=== PATIENT | female | born 1995 | race African-American/Black ===

== ENCOUNTER 2016-11-30 18:51 | Emergency (ER) | payer BC ==
--- NOTE | 2016-11-30 19:20 | EDM.PDOC ---
ED HPI GENERAL MEDICAL PROBLEM - General Chief Complaint: Upper Extremity Injury/Pain Stated Complaint: PAIN RIGHT INDEX FINGER Time Seen by Provider: 11/30/16 19:16 Source of Information: Reports: Patient History Limitations: Reports: No Limitations - History of Present Illness INITIAL COMMENTS - FREE TEXT/NARRATIVE: HISTORY AND PHYSICAL: []21-year-old female presents with right index finger pain at the PIP joint History of Present Illness: []awakened over a week ago and had pain in her finger . "I guess I'm a wild sleeper "she says. No explained injury Review of Systems: As per history of present illness and below otherwise all systems reviewed and negative. Past medical history: As per history of present illness and as reviewed below otherwise noncontributory. Surgical history: As per history of present illness and as reviewed below otherwise noncontributory. Social history: No reported history of drug or alcohol abuse. Family history: As per history of present illness and as reviewed below otherwise noncontributory. Physical exam: Alert and oriented female. Nontoxic. HEENT: Atraumatic, normocehpalic, pupils reactive, negative for conjunctival pallor or scleral icterus, mucous membranes moist, throat clear, neck supple, nontender, trachea midline. Lungs: Clear to auscultation, breath sounds equal bilaterally, chest non tender. Heart: S1S2, regular, negative for clicks, rubs, or JVD. Abdomen: Soft, nondistended, nontender. Negative for masses or hepatossplenmegaly. Negative for costovertebral tenderness. Pelvis: Stable nontender. Genitourinary: Deferred. Rectal: Deferred Extremities: Atraumatic, negative for cords or calf pain. Mild edema noted to the PIP joint of her right index finger. Range of motion is present Neurovascular unremarkable. Neuro: Awake, alert, oriented. Cranial nerves II through XII unremarkable. Cerebellum unremarkable. Motor and sensory unremarkable throughout. Exam nonfocal. Diagnostics: []X-ray right index finger with no fracture or dislocation Therapeutics: splint[] Impression: [pain right index finger] Plan: [] splint with aluminum finger splint ibuprofen for discomfort follow up with your PCP next week Definitive disposition and diagnosis as appropriate pending reevaluation and review of above. Onset: Sudden Duration: Week(s): (Over a week ago), Getting Worse right index Pain Score (Numeric/FACES): 4 - Related Data Allergies Allergy/AdvReac Type Severity Reaction Status Date / Time No Known Allergies Allergy Verified 11/30/16 19:07 Home Meds: Home Meds . [No Known Home Meds] 11/30/16 [History] Review of Systems - Review of Systems Review Of Systems: ROS reveals no pertinent complaints other than HPI. ED EXAM, GENERAL - Physical Exam Exam: See Below (See dictation) Course - Vital Signs Last Recorded V/S: Last Vital Signs Temp 36.3 C 11/30/16 19:08 Pulse 88 11/30/16 19:08 Resp 18 11/30/16 19:08 BP 123/66 11/30/16 19:08 Pulse Ox 98 11/30/16 19:08 - Orders/Labs/Meds Orders: Active Orders 24 hr Category Date Time Status Fingers Second Digit Rt F6 [CR] Stat Exams 11/30/16 19:18 Taken Labs: Laboratory Tests 11/30/16 Range/Units 19:28 Urine HCG, Qual NEGATIVE (NEGATIVE) Departure - Departure Time of Disposition: 20:46 Disposition: Home, Self-Care 01 Condition: Good Clinical Impression: Strain of right index finger - Discharge Information Referrals: PCP,None [Primary Care Provider] - Forms: ED Department Discharge Additional Instructions: The following information is given to patients seen in the emergency department who are being discharged to home. This information is to outline your options for follow-up care. We provide all patients seen in our emergency department with a follow-up referral. The need for follow-up, as well as the timing and circumstances, are variable depending upon the specifics of your emergency department visit. If you don't have a primary care physician on staff, we will provide you with a referral. We always advise you to contact your personal physician following an emergency department visit to inform them of the circumstance of the visit and for follow-up with them and/or the need for any referrals to a consulting specialist. The emergency department will also refer you to a specialist when appropriate. This referral assures that you have the opportunity for followup care with a specialist. All of these measure are taken in an effort to provide you with optimal care, which includes your followup. Under all circumstances we always encourage you to contact your private physician who remains a resource for coordinating your care. When calling for followup care, please make the office aware that this follow-up is from your recent emergency room visit. If for any reason you are refused follow-up, please contact the [facility] emergency department at and asked to speak to the emergency department charge nurse. No fracture or dislocation has been noted on your x-ray today A splint with aluminum and foam has been applied to help with your discomfort Follow-up with your primary care provider next week You may take ibuprofen 3 tablets 3 times daily as needed for your discomfort - My Orders Last 24 Hours: My Active Orders 11/30/16 19:18 Fingers Second Digit Rt F6 [CR] Stat - Assessment/Plan Last 24 Hours: My Active Orders 11/30/16 19:18 Fingers Second Digit Rt F6 [CR] Stat
[2016-11-30 21:40] VITALS: BP 131/78
--- NOTE | 2016-12-01 10:15 | CR ---
EXAM DATE: 11/30/16 PATIENT'S AGE: 21 Patient: KEVIN HAM Facility: [place], [place] Site . Site : 1995 Study: XRay Extremity Right finger [id number]/28/2017 7:47:41 PM Ordering Physician: Doctor Michelle Final Report: INDICATION: EDEMA, PAIN TO 2ND DIGIT ON RIGHT HAND TECHNIQUE: Three views of the right index finger COMPARISON: None FINDINGS: Bones: No fractures or bone lesions. Joint spaces: Unremarkable. Soft tissues: Unremarkable. IMPRESSION: No acute bony abnormality. Dictated by Lucas Dhillon MD @ 11/30/2016 8:35:33 PM Dictated by: Lucas Dhillon MD @ 11/30/2016 20:36:20 (Electronic Signature) Report Signed by Proxy. ST. CLARE'S HOSPITALCaroline
== END 2016-11-30 21:21 | disposition home or self-care (01) ==
LOC: MW.ED 18:51
DX: S69.81XA Other specified injuries of right wrist, hand and finger(s), initial encounter (principal); X58.XXXA Exposure to other specified factors, initial encounter
CPT/HCPCS: 73140-26-F6; 73140-F6; 81025; 99282; 99283

== ENCOUNTER 2017-07-17 01:05 | Emergency (ER) | payer BC ==
[2017-07-17 01:18] VITALS: BP 135/81
--- NOTE | 2017-07-17 01:22 | EDM.PDOC ---
ED HPI GENERAL MEDICAL PROBLEM - General Chief Complaint: ENT Problem Stated Complaint: TOOTH PAIN Time Seen by Provider: 07/17/17 01:22 - History of Present Illness INITIAL COMMENTS - FREE TEXT/NARRATIVE: HISTORY AND PHYSICAL: History of present illness: Age 22-year-old female presents concern of dental pain is in the region of her right upper and lower molar fever chills nausea vomiting or other complaintsReview of systems: As per history of present illness and below otherwise all systems reviewed and negative. Past medical history: As per history of present illness and as reviewed below otherwise noncontributory. Surgical history: As per history of present illness and as reviewed below otherwise noncontributory. Social history: No reported history of drug or alcohol abuse. Family history: As per history of present illness and as reviewed below otherwise noncontributory. Physical exam: HEENT: Atraumatic, normocephalic, pupils reactive, negative for conjunctival pallor or scleral icterus, mucous membranes moist, throat clear, neck supple, nontender, trachea midline. Lungs: Clear to auscultation, breath sounds equal bilaterally, chest nontender. Heart: S1S2, regular, negative for clicks, rubs, or JVD. Abdomen: Soft, nondistended, nontender. Negative for masses or hepatosplenomegaly. Negative for costovertebral tenderness. Pelvis: Stable nontender. Genitourinary: Deferred. Rectal: Deferred. Extremities: Atraumatic, negative for cords or calf pain. Neurovascular unremarkable. Neuro: Awake, alert, oriented. Cranial nerves II through XII unremarkable. Cerebellum unremarkable. Motor and sensory unremarkable throughout. Exam nonfocal. Diagnostics: None Therapeutics: None Impression: Dentalgia Definitive disposition and diagnosis as appropriate pending reevaluation and review of above. dental pain Pain Score (Numeric/FACES): 9 - Related Data Allergies Allergy/AdvReac Type Severity Reaction Status Date / Time No Known Allergies Allergy Verified 07/17/17 01:16 Home Meds: Home Meds . [No Known Home Meds] 11/30/16 [History] Past Medical History HEENT History: Reports: None Cardiovascular History: Reports: None Respiratory History: Reports: None Gastrointestinal History: Reports: None Genitourinary History: Reports: None [employer] History: Reports: None Musculoskeletal History: Reports: None Neurological History: Reports: None Psychiatric History: Reports: None Endocrine/Metabolic History: Reports: None Hematologic History: Reports: None Oncologic (Cancer) History: Reports: None Dermatologic History: Reports: None - Infectious Disease History Infectious Disease History: Reports: None Social & Family History - Family History Family Medical History: Noncontributory - Tobacco Use Smoking Status *Q: Never Smoker - Caffeine Use Caffeine Use: Reports: Energy Drinks - Recreational Drug Use Recreational Drug Use: No ED ROS GENERAL - Review of Systems Review Of Systems: ROS reveals no pertinent complaints other than HPI. ED EXAM, GENERAL - Physical Exam Exam: See Below (See dictation) Course - Vital Signs Last Recorded V/S: Last Vital Signs Temp 36.7 C 07/17/17 01:15 Pulse 60 07/17/17 01:15 Resp 18 07/17/17 01:15 BP 135/81 07/17/17 01:15 Pulse Ox 98 07/17/17 01:15 Departure - Departure Time of Disposition: 01:21 Disposition: Home, Self-Care 01 Condition: Good Clinical Impression: Dentalgia - Discharge Information Referrals: PCP,None [Primary Care Provider] - Additional Instructions: The following information is given to patients seen in the emergency department who are being discharged to home. This information is to outline your options for follow-up care. We provide all patients seen in our emergency department with a follow-up referral. The need for follow-up, as well as the timing and circumstances, are variable depending upon the specifics of your emergency department visit. If you don't have a primary care physician on staff, we will provide you with a referral. We always advise you to contact your personal physician following an emergency department visit to inform them of the circumstance of the visit and for follow-up with them and/or the need for any referrals to a consulting specialist. The emergency department will also refer you to a specialist when appropriate. This referral assures that you have the opportunity for followup care with a specialist. All of these measure are taken in an effort to provide you with optimal care, which includes your followup. Under all circumstances we always encourage you to contact your private physician who remains a resource for coordinating your care. When calling for followup care, please make the office aware that this follow-up is from your recent emergency room visit. If for any reason you are refused follow-up, please contact the [facility] emergency department at and asked to speak to the emergency department charge nurse. Monica Castillo as prescribed Motrin/Tylenol as directed follow-up dentist return as needed as discussed[]
== END 2017-07-17 01:30 | disposition home or self-care (01) ==
LOC: MW.ED 01:05
DX: K08.89 Other specified disorders of teeth and supporting structures (principal)
CPT/HCPCS: 99282

== ENCOUNTER 2017-08-01 21:15 | Emergency (ER) | payer BC ==
--- NOTE | 2017-08-01 23:02 | EDM.PDOC ---
ED HPI GENERAL MEDICAL PROBLEM - General Chief Complaint: ENT Problem Stated Complaint: POSSIBLE PINK EYE Time Seen by Provider: 08/01/17 22:58 - History of Present Illness INITIAL COMMENTS - FREE TEXT/NARRATIVE: HISTORY AND PHYSICAL: History of present illness: Patient 22-year-old female presents concern of pinkeye she has irritation injected right conjunctiva 1 day there's been no fever chills nausea vomiting no other complaints no trauma. Review of systems: As per history of present illness and below otherwise all systems reviewed and negative. Past medical history: As per history of present illness and as reviewed below otherwise noncontributory. Surgical history: As per history of present illness and as reviewed below otherwise noncontributory. Social history: No reported history of drug or alcohol abuse. Family history: As per history of present illness and as reviewed below otherwise noncontributory. Physical exam: HEENT: Atraumatic, normocephalic, pupils reactive, injected conjunctiva no evidence of foreign body no evidence of corneal abrasion anterior chamber clear no discharge mucous membranes moist, throat clear, neck supple, nontender, trachea midline. Lungs: Clear to auscultation, breath sounds equal bilaterally, chest nontender. Heart: S1S2, regular, negative for clicks, rubs, or JVD. Abdomen: Soft, nondistended, nontender. Negative for masses or hepatosplenomegaly. Negative for costovertebral tenderness. Pelvis: Stable nontender. Genitourinary: Deferred. Rectal: Deferred. Extremities: Atraumatic, negative for cords or calf pain. Neurovascular unremarkable. Neuro: Awake, alert, oriented. Cranial nerves II through XII unremarkable. Cerebellum unremarkable. Motor and sensory unremarkable throughout. Exam nonfocal. Diagnostics: None Therapeutics: None Impression: #1 conjunctivitis Definitive disposition and diagnosis as appropriate pending reevaluation and review of above. throat Pain Score (Numeric/FACES): 3 - Related Data Allergies Allergy/AdvReac Type Severity Reaction Status Date / Time No Known Allergies Allergy Verified 08/01/17 22:52 Home Meds: Home Meds . [No Known Home Meds] 11/30/16 [History] Past Medical History - Past Health History Medical/Surgical History: Denies Medical/Surgical History HEENT History: Reports: None Cardiovascular History: Reports: None Respiratory History: Reports: None Gastrointestinal History: Reports: None Genitourinary History: Reports: None [employer] History: Reports: None Musculoskeletal History: Reports: None Neurological History: Reports: None Psychiatric History: Reports: None Endocrine/Metabolic History: Reports: None Hematologic History: Reports: None Oncologic (Cancer) History: Reports: None Dermatologic History: Reports: None - Infectious Disease History Infectious Disease History: Reports: Chicken Pox Social & Family History - Family History Family Medical History: Noncontributory - Tobacco Use Smoking Status *Q: Never Smoker - Caffeine Use Caffeine Use: Reports: Coffee, Energy Drinks, Soda, Tea - Recreational Drug Use Recreational Drug Use: No ED ROS GENERAL - Review of Systems Review Of Systems: ROS reveals no pertinent complaints other than HPI. ED EXAM, GENERAL - Physical Exam Exam: See Below (See dictation) Course - Vital Signs Last Recorded V/S: Last Vital Signs Temp 37.0 C 08/01/17 22:07 Pulse 78 08/01/17 22:07 Resp 16 08/01/17 22:07 BP 134/76 08/01/17 22:07 Pulse Ox 97 08/01/17 22:07 Departure - Departure Time of Disposition: 23:01 Disposition: Home, Self-Care 01 Condition: Good Clinical Impression: Conjunctivitis - Discharge Information Referrals: PCP,None [Primary Care Provider] - Additional Instructions: The following information is given to patients seen in the emergency department who are being discharged to home. This information is to outline your options for follow-up care. We provide all patients seen in our emergency department with a follow-up referral. The need for follow-up, as well as the timing and circumstances, are variable depending upon the specifics of your emergency department visit. If you don't have a primary care physician on staff, we will provide you with a referral. We always advise you to contact your personal physician following an emergency department visit to inform them of the circumstance of the visit and for follow-up with them and/or the need for any referrals to a consulting specialist. The emergency department will also refer you to a specialist when appropriate. This referral assures that you have the opportunity for followup care with a specialist. All of these measure are taken in an effort to provide you with optimal care, which includes your followup. Under all circumstances we always encourage you to contact your private physician who remains a resource for coordinating your care. When calling for followup care, please make the office aware that this follow-up is from your recent emergency room visit. If for any reason you are refused follow-up, please contact the [facility] emergency department at and asked to speak to the emergency department charge nurse. Tobramycin as prescribed follow-up primary medical doctor and/or ophthalmology as needed as discussed and return as needed as discussed
[2017-08-02 00:28] VITALS: BP 98/59
== END 2017-08-01 23:31 | disposition home or self-care (01) ==
LOC: MW.ED 21:15
DX: H10.9 Unspecified conjunctivitis (principal)
CPT/HCPCS: 99282

== ENCOUNTER 2019-11-22 11:43 | Emergency (ER) | payer SELFPAY ==
[2019-11-22] MEDS ORDERED: Bupivacaine 0.5% 10 ML SDV INJECT ONE (12:13)
[2019-11-22] MEDS ORDERED: Acetaminophen 500 MG Tab PO ONE (12:14)
[2019-11-22] MEDS ORDERED: Ibuprofen 400 MG Tab PO ONE (12:14)
--- NOTE | 2019-11-22 12:16 | EDM.PDOC ---
ED HPI GENERAL MEDICAL PROBLEM - General Chief Complaint: General Stated Complaint: TOOTH PAIN Time Seen by Provider: 11/22/19 11:57 Source of Information: Reports: Patient History Limitations: Reports: No Limitations - History of Present Illness INITIAL COMMENTS - FREE TEXT/NARRATIVE: 24-year-old female with no past medical history presenting with dental pain. Patient reports a 3-day history of pain to 1 of her left upper teeth and 1 day history of left-sided facial swelling. Has not seen a dentist in greater than 1 year. Reports that she cracked 1 of her teeth which is at the same area as her pain. Denies fever, chills, difficulty swallowing or speaking, neck stiffness, vomiting, voice change. Intermittently taking acetaminophen and ibuprofen at home without much relief. Denies any other complaints. Past medical history: Reviewed, no additional pertinent history. Surgical history: Reviewed in system, no additional pertinent history. Social history: Reviewed in system, no additional pertinent history. Family history: Reviewed in system, no additional pertinent history. PHYSICAL EXAM Vital signs reviewed. Nursing notes reviewed. Constitutional: Awake, alert, non-distressed. Head: Normocephalic, atraumatic. Eyes: EOMI, conjunctiva normal, no discharge, no scleral icterus. Ears, Nose, Throat: External ears and nose normal, moist oral mucosa. Midline uvula. Soft floor the mouth. Mild amount of tenderness and swelling at the base of the #13 tooth consistent with a mild periapical abscess. Normal voice. Neck: Supple, full range of motion. No pain with tracheal tug. Cardiovascular: 2+ radial pulse, capillary refill less than 2 seconds. Pulmonary: normal work of breathing, no accessory muscle use. Speaking in full sentences, handling secretions without difficulty. Abdomen/GI: nondistended Musculoskeletal: No deformities. Integumentary: Appropriate color for ethnicity, warm, dry, no pallor or jaundice, no rash. Neurologic: Alert, answering questions appropriately, normal speech, no facial droop, moving all extremities well. Psychiatric: Appropriate mood and affect, normal thought process. - Related Data Allergies Allergy/AdvReac Type Severity Reaction Status Date / Time No Known Allergies Allergy Verified 11/22/19 11:57 Home Meds: Home Meds Acetaminophen [Acetaminophen Extra Strength] 500 - 1,000 mg PO Q6H PRN #30 tablet 11/22/19 [Rx] Amoxicillin/Potassium Clav [Augmentin 875-125 Tablet] 1 each PO BID 10 Days #20 tablet 11/22/19 [Rx] Ibuprofen 400 mg PO Q6H PRN #30 tablet 11/22/19 [Rx] Past Medical History - Past Health History Medical/Surgical History: Denies Medical/Surgical History HEENT History: Reports: None Cardiovascular History: Reports: None Respiratory History: Reports: None Gastrointestinal History: Reports: None Genitourinary History: Reports: None CARDIAC CATH RN History: Reports: None Musculoskeletal History: Reports: None Neurological History: Reports: None Psychiatric History: Reports: None Endocrine/Metabolic History: Reports: None Hematologic History: Reports: None Oncologic (Cancer) History: Reports: None Dermatologic History: Reports: None - Infectious Disease History Infectious Disease History: Reports: None - Past Surgical History HEENT Surgical History: Reports: None Cardiovascular Surgical History: Reports: None Respiratory Surgical History: Reports: None GI Surgical History: Reports: None Female Surgical History: Reports: None Endocrine Surgical History: Reports: None Neurological Surgical History: Reports: None Musculoskeletal Surgical History: Reports: None Dermatological Surgical History: Reports: None Social & Family History - Family History Family Medical History: Noncontributory - Tobacco Use Smoking Status *Q: Current Every Day Smoker Years of Tobacco use: 4 Packs/Tins Daily: 0.1 - Caffeine Use Caffeine Use: Reports: None - Alcohol Use Alcohol Use History: Yes - Recreational Drug Use Recreational Drug Use: No ED ROS GENERAL - Review of Systems Review Of Systems: See Below ED EXAM, GENERAL - Physical Exam Exam: See Below ED I&D PROCEDURES - I&D Site: #13 tooth/periapical Local Anesthesia - Bupivicaine (Marcaine): 0.5% Plain Local Anesthetic Volume: 2cc Area Incised With: 11 Blade Drainage: Purulent Probed to Break Up Loculations: No Packed With: None Complications: No Progress/Comments: Left MSA block and local infiltration. Course - Vital Signs Text/Narrative:: Patient hemodynamically stable, afebrile, well-appearing, looks nontoxic. Differential diagnosis includes but is not limited to: pulpitis, periapical abscess, deep space neck infection, sinusitis, fractured tooth, etc. Mildly hypertensive on arrival, nontoxic, afebrile, well-appearing. On examination, patient has a periapical abscess at the root of the #13 tooth. Dental balls were placed and the patient was given Tylenol and Motrin. She underwent an MSA nerve block and also had local infiltration with bupivacaine. She then underwent incision and drainage as detailed in procedure documentation. This was well-tolerated. Stable to discharge home with outpatient dentistry clinic follow-up. Prescriptions written for Augmentin, Tylenol, and Motrin. Strict emergency department return precautions were provided, patient indicated understanding. All questions were answered prior to departure. Discharged in good condition. Last Recorded V/S: Last Vital Signs Temp 35.9 C L 11/22/19 11:55 Pulse 82 11/22/19 12:41 Resp 18 11/22/19 12:41 BP 118/70 11/22/19 12:41 Pulse Ox 98 11/22/19 12:41 - Orders/Labs/Meds Meds: Medications Discontinued Medications Generic Name Dose Route Start Last Admin Trade Name Freq PRN Reason Stop Dose Admin Acetaminophen 1,000 mg 11/22/19 12:14 11/22/19 12:40 Tylenol Extra Strength PO 11/22/19 12:15 1,000 mg ONETIME ONE Administration Benzocaine 2 each 11/22/19 12:23 11/22/19 12:40 Hurricaine One 20% MUCMEM 11/22/19 12:24 2 each ONETIME ONE Administration Bupivacaine HCl 10 ml 11/22/19 12:13 11/22/19 12:40 Sensorcaine-Mpf 0.5% INJECT 11/22/19 12:14 10 ml ONETIME ONE Administration Ibuprofen 400 mg 11/22/19 12:14 11/22/19 12:40 Motrin PO 11/22/19 12:15 400 mg ONETIME ONE Administration Lidocaine HCl 15 ml 11/22/19 12:23 11/22/19 12:40 Xylocaine 2% Viscous PO 11/22/19 12:24 15 ml ONETIME ONE Administration Departure - Departure Time of Disposition: 13:06 Disposition: Home, Self-Care 01 Condition: Good Clinical Impression: Periapical abscess - Discharge Information *PRESCRIPTION DRUG MONITORING PROGRAM REVIEWED*: Not Applicable *COPY OF PRESCRIPTION DRUG MONITORING REPORT IN PATIENT LUÍS: Not Applicable Prescriptions: Acetaminophen [Acetaminophen Extra Strength] 500 - 1,000 mg PO Q6H PRN #30 tablet PRN Reason: Pain (Mild 1-3) Amoxicillin/Potassium Clav [Augmentin 875-125 Tablet] 1 each PO BID 10 Days #20 tablet Ibuprofen 400 mg PO Q6H PRN #30 tablet PRN Reason: Pain (Mild 1-3) Referrals: PCP,None [Primary Care Provider] - Forms: ED Department Discharge Additional Instructions: You were seen in the emergency department for dental pain and swelling. You had an abscess at the root of your tooth, we incised and drained. We are going to prescribe some oral antibiotics along with Tylenol and Motrin. You do need to follow-up with a dentist in the next 1 to 2 weeks for reevaluation. Warning signs to come back to the ER include worsening facial swelling, fever, difficulty speaking, swallowing, or breathing, or any other new or concerning symptoms. Please return the emergency department immediately if your symptoms worsen or if you feel worse. Thank you for choosing the [facility] emergency department in [place] for your medical needs today. It was a pleasure caring for you. The following information is given to patients seen in the emergency department who are being discharged. This information is to outline your options for follow-up care. We provide all patients seen in our emergency department with a follow-up referral. The need for follow-up, as well as the timing and circumstances, are variable depending upon the specifics of your emergency department visit. If you don't have a primary care physician on staff, we will provide you with a referral. We always advise you to contact your personal physician following an emergency department visit to inform them of the circumstance of the visit and for follow-up with them and/or the need for any referrals to a consulting specialist. The emergency department will also refer you to a specialist when appropriate. This referral assures that you have the opportunity for follow-up care with a specialist. All of these measure are taken in an effort to provide you with optimal care, which includes your follow-up. Under all circumstances we always encourage you to contact your private physician who remains a resource for coordinating your care. When calling for follow-up care, please make the office aware that this follow-up is from your recent emergency room visit. If for any reason you are refused follow-up, please contact the [facility] Emergency Department at and asked to speak to the emergency department charge nurse. If you do not have a primary care physician that is caring for you, you can contact these clinics below to set up an appointment to establish care: [facility] [address] [place] [id number] [facility] [address] [place] [id number] Sepsis Event Note (ED) - Evaluation Sepsis Screening Result: No Definite Risk - Focused Exam Vital Signs: Vital Signs Temp Pulse Resp BP Pulse Ox 11/22/19 12:41 82 18 118/70 98 11/22/19 11:55 35.9 C L 68 18 148/129 H 98
[2019-11-22] MEDS ORDERED: Benzocaine 20% Topical Spray UD MUCMEM ONE (12:23)
[2019-11-22] MEDS ORDERED: Lidocaine 2% Viscous Solution 15 ML Cup PO ONE (12:23)
[2019-11-22 17:07] VITALS: BP 118/80; PULSE 62
== END 2019-11-22 13:30 | disposition home or self-care (01) ==
LOC: MW.ED 11:43
DX: K04.7 Periapical abscess without sinus (principal); F17.210 Nicotine dependence, cigarettes, uncomplicated
CPT/HCPCS: 41800; 99282; A9270; J3490

== ENCOUNTER 2021-04-16 12:40 | Emergency (ER) | payer BC ==
[2021-04-16 15:07] VITALS: BP 112/82; PULSE 73
== END 2021-04-16 14:49 | disposition home or self-care (01) ==
LOC: MW.ED 12:40
DX: M17.11 Unilateral primary osteoarthritis, right knee (principal)
CPT/HCPCS: 73562-26-RT; 73562-RT; 81025; 99283-25

== ENCOUNTER 2021-12-06 11:42 | Emergency (ER) | payer BC ==
[2021-12-06 11:58] VITALS: BP 146/85; PULSE 72
[2021-12-06 13:22] LABS: POTASSIUM,K 3.6 mmol/L (3.5-5.1)
== END 2021-12-06 14:20 | disposition home or self-care (01) ==
LOC: MW.ED 11:42
DX: O20.0 Threatened abortion (principal); Z79.82 Long term (current) use of aspirin; Z3A.01 Less than 8 weeks gestation of pregnancy
CPT/HCPCS: 36415; 80053; 81001; 84702; 85025; 87086; 99284

== ENCOUNTER 2022-12-02 17:19 | Emergency (ER) | payer BC ==
[2022-12-02] MEDS ORDERED: Ketorolac 30 MG/ML SDV IM ONE (18:32)
[2022-12-02] MEDS ORDERED: Cyclobenzaprine 10 MG Tab PO ONE (18:32)
[2022-12-02] MEDS ORDERED: Lidocaine 4% 1 each Patch TOP PRN (18:33)
[2022-12-02 20:18] VITALS: BP 123/74; PULSE 73
== END 2022-12-02 20:17 | disposition home or self-care (01) ==
LOC: MW.ED 17:19
DX: M54.42 Lumbago with sciatica, left side (principal); Z72.0 Tobacco use
CPT/HCPCS: 72131; 96372; 99283; A9270; J1885

== ENCOUNTER 2023-07-26 08:20 | Emergency (ER) | payer BC ==
[2023-07-26 09:49] LABS: BASOPHILS ABSOLUTE AUTO 0.03 K/uL (0.00-0.20); BASOPHILS PERCENT AUTO 0.4 % (0.0-1.0); EOSINOPHILS ABSOLUTE AUTO 0.13 K/uL (0.00-0.45); EOSINOPHILS PERCENT AUTO 1.9 % (0.0-6.0); HEMATOCRIT 38.6 % (37.0-47.0); HEMOGLOBIN 13.1 g/dL (12.0-16.0); IMMATURE GRAN ABSOLUTE AUTO 0.03 K/uL (0.00-0.05); IMMATURE GRAN PERCENT AUTO 0.4 % (0.0-0.4); LYMPHOCYTES ABSOLUTE AUTO 2.12 K/uL (1.00-4.80); LYMPHOCYTES PERCENT AUTO 31.1 % (24.0-44.0); MEAN CORPUSCULAR HEMOGLOBIN 29.5 pg (28.0-32.0); MEAN CORPUSCULAR HGB CONC 33.9 g/dL (32.0-36.0); MEAN CORPUSCULAR VOLUME 86.9 fL (83.0-99.0); MONOCYTES ABSOLUTE AUTO 0.41 K/uL (0.00-0.80); NEUTROPHILS ABSOLUTE AUTO 4.09 K/uL (1.80-7.70); NEUTROPHILS PERCENT AUTO 60.2 % (41.0-71.0); PLATELET COUNT,PLT 248 K/uL (150-400); RED BLOOD CELL COUNT 4.44 M/uL (4.10-5.30); WHITE BLOOD CELL COUNT,WBC 6.81 K/uL (3.9-11.3)
[2023-07-26 12:11] VITALS: BP 132/78; PULSE 78
== END 2023-07-26 12:12 | disposition home or self-care (01) ==
LOC: MW.ED 08:20
DX: O20.0 Threatened abortion (principal); Z3A.09 9 weeks gestation of pregnancy
CPT/HCPCS: 36415; 76801; 76801-26; 84702; 85025; 99284

== ENCOUNTER 2024-04-18 09:48 | Emergency (ER) | payer BC ==
[2024-04-18] MEDS ORDERED: Sodium Chloride 0.9% 2.5 ML Syringe FLUSH PRN (09:52)
[2024-04-18] MEDS ORDERED: Sodium Chloride 0.9% 10 ML Syringe FLUSH PRN (09:52)
[2024-04-18 10:19] LABS: BASOPHILS ABSOLUTE AUTO 0.04 K/uL (0.00-0.20); BASOPHILS PERCENT AUTO 0.4 % (0.0-1.0); EOSINOPHILS ABSOLUTE AUTO 0.15 K/uL (0.00-0.45); EOSINOPHILS PERCENT AUTO 1.6 % (0.0-6.0); HEMOGLOBIN 12.4 g/dL (12.0-16.0); IMMATURE GRAN ABSOLUTE AUTO 0.03 K/uL (0.00-0.05); IMMATURE GRAN PERCENT AUTO 0.3 % (0.0-0.4); LYMPHOCYTES ABSOLUTE AUTO 2.24 K/uL (1.00-4.80); LYMPHOCYTES PERCENT AUTO 23.5 % (24.0-44.0); MEAN CORPUSCULAR HEMOGLOBIN 28.8 pg (28.0-32.0); MEAN CORPUSCULAR HGB CONC 33.5 g/dL (32.0-36.0); MEAN CORPUSCULAR VOLUME 85.8 fL (83.0-99.0); MEAN PLATELET VOLUME 9.4 fL (9.4-12.3); MONOCYTES PERCENT AUTO 5.2 % (0.0-8.0); NEUTROPHILS ABSOLUTE AUTO 6.59 K/uL (1.80-7.70); PLATELET COUNT,PLT 231 K/uL (150-400); RED BLOOD CELL COUNT 4.31 M/uL (4.10-5.30); WHITE BLOOD CELL COUNT,WBC 9.55 K/uL (3.9-11.3)
[2024-04-18 11:09] LABS: A/G RATIO 0.7 (0.9-1.6); ALBUMIN 3.1 g/dL (3.4-5.0); BILIRUBIN TOTAL 0.3 mg/dL (0.2-1.0); CALCIUM 9.3 mg/dL (8.5-10.1); CARBON DIOXIDE,CO2 25.3 mmol/L (21.0-32.0); CREATININE 0.9 mg/dL (0.6-1.0); EST CRCL DRUG DOSING (CG) 89.69 mL/min; POTASSIUM,K 4.1 mmol/L (3.5-5.1); PROTEIN TOTAL,TP 7.4 g/dL (6.4-8.2)
[2024-04-18 11:46] LABS: APPEARANCE,URINE CLEAR; BILIRUBIN,URINE NEGATIVE (NEGATIVE); COLOR,URINE YELLOW; GLUCOSE,URINE NEGATIVE (NEGATIVE); KETONES,URINE NEGATIVE (NEGATIVE); LEUKOCYTE ESTERASE,URINE NEGATIVE (NEGATIVE); NITRITE,URINE NEGATIVE (NEGATIVE); OCCULT BLOOD,URINE MODERATE (NEGATIVE); PROTEIN,URINE NEGATIVE (NEGATIVE); UROBILINOGEN,URINE 0.2 EU/dL (<2.0)
[2024-04-18 11:52] LABS: BACTERIA,URINE RARE (NEGATIVE); EPITHELIAL CELLS,URINE RARE (NONE-FEW); RBC,URINE 0-3 (0-2/HPF); WBC,URINE 0-1 (0-5/HPF)
[2024-04-18 11:53] LABS: MUCUS,URINE LIGHT (NONE-MOD)
[2024-04-18] MEDS: Lidocaine 4% 1 each Patch TOP PRN (13:45)
[2024-04-18 13:48] VITALS: BP 105/47; PULSE 74
== END 2024-04-18 13:50 | disposition home or self-care (01) ==
LOC: MW.ED 09:48
DX: O26.891 Other specified pregnancy related conditions, first trimester (principal); R10.32 Left lower quadrant pain; Z87.891 Personal history of nicotine dependence; Z75.8 Other problems related to medical facilities and other health care; Z3A.01 Less than 8 weeks gestation of pregnancy
CPT/HCPCS: 36415; 76813; 80053; 81001; 83690; 84702; 85025; 86900; 86901; 99284; A9270; 76816-26

== ENCOUNTER 2024-10-12 14:10 | Observation (INO) | payer BC ==
[2024-10-12] MEDS ORDERED: Sodium Chloride 0.9% 10 ML Syringe FLUSH PRN (15:23)
[2024-10-12] MEDS ORDERED: Sodium Chloride 0.9% 2.5 ML Syringe FLUSH PRN (15:23)
[2024-10-12 17:39] LABS: CANDIDA DNA PROBE NEGATIVE (NEGATIVE); GARDNERELLA DNA PROBE POSITIVE (NEGATIVE); TRICHOMONAS DNA PROBE NEGATIVE (NEGATIVE)
[2024-10-12] MEDS: Betamethasone Acetate/Betamethasone Sod Phosphate 6 MG/1 ML MDV IM SCH (17:42)
[2024-10-12] MEDS: Lactated Ringers 1,000 ML IV SCH (17:55)
[2024-10-12 22:11] LABS: APPEARANCE,URINE SLT CLOUDY; GLUCOSE,URINE NEGATIVE (NEGATIVE); OCCULT BLOOD,URINE NEGATIVE (NEGATIVE)
[2024-10-12 23:49] LABS: MEAN PLATELET VOLUME 10.0 fL (9.4-12.3); NRBC ABSOLUTE 0.00 K/uL (0.00-0.02); NRBC PERCENT 0.0 /100WBC (0.0-0.2); PLATELET COUNT,PLT 275 K/uL (150-400); RED BLOOD CELL COUNT 4.60 M/uL (4.10-5.30); WHITE BLOOD CELL COUNT,WBC 10.30 K/uL (3.9-11.3)
[2024-10-13 00:22] LABS: TSH ULTRASENSITIVE 1.05 uIU/mL (0.36-3.74)
[2024-10-13] MEDS: LORazepam 2 MG/ML SDV IVPUSH ONE (00:30)
== END 2024-10-13 18:15 | disposition home or self-care (01) ==
LOC: MW.OBCHECK 14:10 → MW.OB 14:12 → MW.OBCHECK 10-13 08:15 → MW.OB 10-13 08:17
PROVIDERS: ADMIT Obstetrics & Gynecology; ATTEND Obstetrics & Gynecology
DX: O34.33 Maternal care for cervical incompetence, third trimester (principal); O23.593 Infection of other part of genital tract in pregnancy, third trimester; B96.89 Other specified bacterial agents as the cause of diseases classified elsewhere; O99.213 Obesity complicating pregnancy, third trimester; E66.9 Obesity, unspecified; Z3A.32 32 weeks gestation of pregnancy; Z98.890 Other specified postprocedural states
CPT/HCPCS: 36415; 59025; 76805; 81003; 82947; 84112; 84443; 85027; 87081; 87480; 87510; 87660; 93971; 99211; A9270; J0702; J2060; J7120; 96372; G0378

== ENCOUNTER 2024-11-21 01:17 | Inpatient (IN) | payer BC ==
[2024-11-21] MEDS ORDERED: Carboprost Tromethamine 250 MCG/1 mL Vial IM PRN (01:44)
[2024-11-21] MEDS ORDERED: Sodium Chloride 0.9% 2.5 ML Syringe FLUSH PRN (01:44)
[2024-11-21] MEDS ORDERED: Water For Irrigation,Sterile 1,000 ML Container IRR PRN (01:44)
[2024-11-21] MEDS ORDERED: Butorphanol 1 MG/ML SDV IVPUSH PRN (01:44)
[2024-11-21] MEDS ORDERED: Sodium Chloride 0.9% 10 ML Syringe FLUSH PRN (01:44)
[2024-11-21] MEDS ORDERED: Oxytocin/0.9 % Sodium Chloride 30 UNIT/500 ML BAG IV SCH (01:45)
[2024-11-21 02:34] LABS: MEAN PLATELET VOLUME 10.3 fL (9.4-12.3); NRBC ABSOLUTE 0.00 K/uL (0.00-0.02); NRBC PERCENT 0.0 /100WBC (0.0-0.2); PLATELET COUNT,PLT 272 K/uL (150-400); RED BLOOD CELL COUNT 4.26 M/uL (4.10-5.30); WHITE BLOOD CELL COUNT,WBC 10.51 K/uL (3.9-11.3)
[2024-11-21] MEDS ORDERED: ePHEDrine 50 MG/ML SDV IVPUSH PRN (03:59)
[2024-11-21] MEDS ORDERED: dexmedeTOMIDine HCl 200 MCG/2 ML SDV EPIDUR SCH (04:00)
[2024-11-21] MEDS: diphenhydrAMINE 50 MG/ML SDV IVPUSH ONE (04:39)
[2024-11-21] MEDS ORDERED: Terbutaline 1 MG/ML SDV SUBCUT PRN (19:43)
[2024-11-21] MEDS: Lactated Ringers 1,000 ML IV SCH (20:08)
[2024-11-21] MEDS: Oxytocin/0.9 % Sodium Chloride 30 UNIT/500 ML BAG IV SCH (20:28)
[2024-11-22] MEDS: Ropivacaine HCl/PF 400 MG in Premix Bag 1 BAG EPIDUR SCH (02:36)
[2024-11-22] MEDS: Ondansetron 4 MG/2 ML SDV IVPUSH PRN (05:56)
[2024-11-22] MEDS ORDERED: Lanolin 100% Cream 7 GM Tube TOP PRN (18:51)
[2024-11-22 19:02] LABS: PH,UMBILICAL ARTERIAL 7.173 (7.18-7.38); PH,UMBILICAL VENOUS 7.312 (7.25-7.45)
[2024-11-22] MEDS: Witch Hazel Medicated Pads 40/Jar TOP PRN (20:06)
[2024-11-22] MEDS: Benzocaine/Menthol 20%-0.5% Spray 78 GM Cannister TOP PRN (20:07)
[2024-11-23 20:43] VITALS: BP 111/65; PULSE 73
== END 2024-11-23 21:58 | disposition home or self-care (01) | DRG 560 ==
LOC: MW.OBCHECK 01:17 → MW.OB 01:20 → MW.OBCHECK 01:43 → MW.OB 01:44 → OBSVTOIN 11-22 18:24 → MW.OB 11-23 03:17
PROVIDERS: ADMIT Obstetrics & Gynecology; ATTEND Obstetrics & Gynecology
PROC: 10E0XZZ Delivery of Products of Conception, External Approach (ICD-10-PCS; principal; 2024-11-22)
PROC: 10H07YZ Insertion of Other Device into Products of Conception, Via Natural or Artificial Opening (ICD-10-PCS; 2024-11-22)
PROC: 4A1HXCZ Monitoring of Products of Conception, Cardiac Rate, External Approach (ICD-10-PCS; 2024-11-22)
PROC: 3E0R3BZ Introduction of Anesthetic Agent into Spinal Canal, Percutaneous Approach (ICD-10-PCS; 2024-11-22)
PROC: 00HU33Z Insertion of Infusion Device into Spinal Canal, Percutaneous Approach (ICD-10-PCS; 2024-11-22)
DX: O42.02 Full-term premature rupture of membranes, onset of labor within 24 hours of rupture (principal); O99.214 Obesity complicating childbirth; Z3A.38 38 weeks gestation of pregnancy; Z37.0 Single live birth; E66.01 Morbid (severe) obesity due to excess calories; O71.89 Other specified obstetric trauma
CPT/HCPCS: 01967; 36415; 51702; 59025; 59409; 76805; 76805-26; 82803; 85014; 85018; 85027; 86592; 86850; 86900; 86901; A9270-GY; J1200; J2371; J2405; J2590; J2795; J7120